=== PATIENT | female | born 1940 | race Caucasian/White ===

== ENCOUNTER 2022-12-27 08:15 | Day surgery (SDC) | payer MEDICARE, BC ==
[~2022-12-27 08:15] MED LIST: Lidocaine 1%/Sod Bicarbonate in NS 8.4% 1 ML Syringe IDERM PRN; Sodium Chloride 0.9% 10 ML Syringe FLUSH PRN; Sodium Chloride 0.9% 10 ML Syringe FLUSH SCH
[2022-12-27] MEDS: Lactated Ringers 1,000 ML IV SCH ×2 (08:35→12:49)
[2022-12-27] MEDS ORDERED: Bupivacaine 0.25% 10 ML SDV ONE (08:58)
[2022-12-27] MEDS ORDERED: Ondansetron 4 MG/2 ML SDV IVPUSH PRN ×2 (09:16→12:54)
[2022-12-27] MEDS ORDERED: fentaNYL 100 MCG/2 ML SDV IVPUSH PRN ×2 (09:16→12:54)
[2022-12-27] MEDS ORDERED: HYDROmorphone 0.5 MG/0.5 ML Syringe IVPUSH PRN ×2 (09:16→12:54)
[2022-12-27] MEDS ORDERED: Dexamethasone 4 MG/ML 5 ML MDV ONE (09:26)
[2022-12-27] MEDS ORDERED: Propofol 200 MG/20 ML SDV ONE (09:26)
[2022-12-27] MEDS ORDERED: Lidocaine 1% 5 ML VIAL ONE (09:26)
[2022-12-27] MEDS ORDERED: fentaNYL 100 MCG/2 ML SDV ONE ×2 (09:26→11:04)
[2022-12-27] MEDS ORDERED: Ondansetron 4 MG/2 ML SDV ONE (09:26)
[2022-12-27] MEDS ORDERED: ceFAZolin 2 GM Vial ONE (09:26)
[2022-12-27] MEDS ORDERED: Ropivacaine 0.5% 5 MG/ML 30 ML SDV ONE (10:01)
[2022-12-27] MEDS ORDERED: EPINEPHrine 1 MG/ML SDV ONE (10:01)
[2022-12-27] MEDS ORDERED: Rocuronium 50 MG/5 ML Vial ONE (10:11)
[2022-12-27] MEDS ORDERED: Phenylephrine HCl In 0.9% NaCl 1 MG/10 ML Vial ONE (10:24)
[2022-12-27] MEDS ORDERED: ePHEDrine 50 MG/ML SDV ONE (10:25)
[2022-12-27] MEDS ORDERED: Sugammadex Sodium 200 MG/2 ML VIAL ONE (10:32)
[2022-12-27] MEDS ORDERED: Lactated Ringers 1,000 ML ONE ×2 (10:58→10:59)
[2022-12-27] MEDS ORDERED: HYDROmorphone 0.5 MG/0.5 ML Syringe ONE ×2 (11:31→11:36)
[2022-12-27] MEDS ORDERED: Labetalol 100 MG/20 ML MDV ONE (12:06)
[2022-12-27] MEDS ORDERED: Acetaminophen/HYDROcodone 325-5 MG Tab PO ONE (13:39)
== END 2022-12-27 14:50 | disposition home or self-care (01) ==
LOC: JD.SDS 08:15
PROVIDERS: ATTEND Orthopaedic Surgery
DX: S82.842A Displaced bimalleolar fracture of left lower leg, initial encounter for closed fracture (principal); I10 Essential (primary) hypertension; M85.80 Other specified disorders of bone density and structure, unspecified site; E78.5 Hyperlipidemia, unspecified; K21.9 Gastro-esophageal reflux disease without esophagitis; Z79.899 Other long term (current) drug therapy; Z87.891 Personal history of nicotine dependence; Z79.82 Long term (current) use of aspirin
CPT/HCPCS: 27814; 27829; 64415; 64445; 76000; A9270; C1713; C1776; J0690; J1100; J1170; J2405; J2704; J2795; J3010; J3490; J7120; 01480; 64450; 99100; J0171